=== PATIENT | male | born 1995 | race Caucasian/White ===

== ENCOUNTER 2021-11-26 16:47 | Emergency (ER) | payer BC, SELFPAY ==
[2021-11-26] MEDS ORDERED: Cyclobenzaprine 10 MG TAB ONE (18:39)
[2021-11-26] MEDS ORDERED: Ketorolac Tromethamine 30 MG/ML VIAL ONE (18:39)
[2021-11-26] MEDS ORDERED: Dexamethasone 10 MG/ML VIAL ONE (18:39)
[2021-11-26] MEDS ORDERED: HYDROcodone/Acetaminophen 5/325 mg Tablet ONE (20:37)
== END 2021-11-26 22:13 | disposition home or self-care (01) ==
LOC: CSHERS 16:47
DX: M54.50 Low back pain, unspecified (principal)
CPT/HCPCS: 96372; 99283; J1100; J1885